=== PATIENT | male | born 1950 | race Caucasian/White ===

== ENCOUNTER 2022-10-27 10:55 | Emergency (ER) | payer MEDICARE, OTHER ==
[2022-10-27] MEDS ORDERED: Diphtheria,Pertussis(Acell),Tetanus Vaccine 0.5 ML Syringe IM ONE (13:47)
== END 2022-10-27 15:14 | disposition home or self-care (01) ==
LOC: MW.ED 10:55
DX: S61.210A Laceration without foreign body of right index finger without damage to nail, initial encounter (principal); Z23 Encounter for immunization; W26.8XXA Contact with other sharp object(s), not elsewhere classified, initial encounter
CPT/HCPCS: 12001; 90471; 99283